=== PATIENT | male | born 1985 ===

== ENCOUNTER → 2017-09-26 | Outpatient (CLI) | payer BC ==
[2017-09-26 13:00] LABS: Specimen Source URINE
[2017-09-27 00:44] LABS: Source Urine
[2017-09-28 11:18] LABS: HCV Non Reactive (NR)
== END ==
LOC: LAB SHORT 12:58 → LAB 12:58
PROVIDERS: Physician Assistant
DX: N34.1 Nonspecific urethritis (principal)
CPT/HCPCS: 80074; 86592; 87389; 87491; 87591